=== PATIENT | male | born 1980 | race Caucasian/White ===

== ENCOUNTER 2024-05-01 15:18 | Outpatient (REF) | payer BC, SELFPAY ==
--- NOTE | ~2024-05-01 | MR_ITS ---
EXAMINATION: MR LUMBAR SPINE WITHOUT CONTRAST CLINICAL INFORMATION: Low back pain. Bilateral anterior thigh pain. COMPARISON: No relevant prior imaging. TECHNIQUE: MRI of the lumbar spine was obtained using routine sequences without contrast. FINDINGS: There is a slight grade 1 retrolisthesis of L2 on L3. Alignment is otherwise normal. Vertebral body heights are preserved. No acute bone marrow signal tendons. There is slight loss of intervertebral disc on T2 signal intensity at multiple levels related to disc degeneration. The tip of the conus medullaris is located at T12-L1. No mass effect on the conus. Visualized distal cord signal intensity is normal. At L1-L2 there is a right central annular fissure associated with a bulging disc. No canal stenosis. No mass effect on the traversing of foraminal nerve roots. At L2-L3 there is an asymmetrically bulging disc to the left. No canal stenosis. Subtle abutment of the left traversing L3 nerve roots. No foraminal nerve root compression. At L3-L4 there is a small central annular fissure associated with a bulging disc. Facet degenerative changes. No canal stenosis. No mass effect contours are foraminal nerve roots. At L4-L5 there is a broad shallow right central protrusion causing indentation of the thecal sac and abutment of the right traversing L5 nerve roots. No foraminal nerve root compression. At L5-S1 there is a shallow right central protrusion causing indentation of the thecal sac. No canal stenosis. No mass effect on the traversing or foraminal nerve roots. Limited visualization of the retroperitoneal anatomy reveals no abnormal findings. Psoas and paraspinal muscle groups are symmetric. MR/MR lumbar spine wo con IMPRESSION: There is multilevel degenerative spondylosis of the lumbar spine with slight grade 1 retrolisthesis of L2 on L3. No canal stenosis. There is subtle abutment of the left traversing L3 nerve roots related to an asymmetrically bulging disc at L2-L3 and abutment of the right traversing L5 nerve roots related to a broad shallow right central protrusion at L4-L5. Otherwise no substantial mass effect on the traversing or foraminal nerve roots elsewhere within the lumbar spine. Electronically signed by: Todd Ho MD 05/30/2024 01:31 PM EDT
== END 2024-05-01 15:19 | disposition home or self-care (01) ==
LOC: HO.MRI 15:18
PROVIDERS: PCP Internal Medicine; Visit Provider Nurse Practitioner Women's Health
DX: M54.16 Radiculopathy, lumbar region (principal)
CPT/HCPCS: 72148